=== PATIENT | male | born 1960 | race Caucasian/White ===

== ENCOUNTER → 2018-04-19 | Outpatient (REF) | payer OTHER ==
[2018-04-19 14:19] LABS: ALBUMIN 4.1 GM/DL (3.2-5.2); ALT/SGPT 39 U/L (12-78); BILIRUBIN,TOTAL 0.6 MG/DL (0.2-1.0); BLOOD UREA NITROGEN 19 MG/DL (7-18); CALCIUM LEVEL 8.9 MG/DL (8.5-10.1); CARBON DIOXIDE LEVEL 28 MEQ/L (21-32); CHLORIDE LEVEL 103 MEQ/L (98-107); CHOLESTEROL LEVEL 246 MG/DL (<200); CHOLESTEROL RISK RATIO 4.823 (<5); CREATININE FOR GFR 1.02 MG/DL (0.70-1.30); GLOMERULAR FILTRATION RATE > 60.0 (>56); GLUCOSE, FASTING 104 MG/DL (70-100); HDL CHOLESTEROL 51 MG/DL (>40); LDL CHOLESTEROL 175 MG/DL (<100); NON-HDL-C 195 MG/DL; POTASSIUM SERUM 4.7 MEQ/L (3.5-5.1); SODIUM LEVEL 138 MEQ/L (136-145); TOTAL PROTEIN 7.3 GM/DL (6.4-8.2); TRIGLYCERIDES LEVEL 101 MG/DL (<150)
[2018-04-19 14:43] LABS: HEMOGLOBIN A1c 6.2 %
== END ==
LOC: M SFHCPLAZ 10:15
PROVIDERS: ATTEND Family Medicine
DX: R73.03 Prediabetes (principal); E78.2 Mixed hyperlipidemia; Z86.73 Personal history of transient ischemic attack (TIA), and cerebral infarction without residual deficits

== ENCOUNTER → 2018-07-16 | Outpatient (REF) | payer OTHER ==
[2018-07-16 14:31] LABS: APPEARANCE, URINE CLEAR (CLEAR); BACTERIA, URINE AUTO NEGATIVE (NEGATIVE); BILIRUBIN, URINE AUTO NEGATIVE (NEGATIVE); BLOOD, URINE BLOOD NEGATIVE (NEGATIVE); COLOR, URINE YELLOW (YELLOW); GLUCOSE, URINE (UA) AUTO NEGATIVE (NEGATIVE); KETONE, URINE AUTO NEGATIVE (NEGATIVE); LEUKOCYTE ESTERASE, URINE AUTO NEGATIVE (NEGATIVE); NITRITE, URINE AUTO NEGATIVE (NEGATIVE); PROTEIN, URINE AUTO NEGATIVE (NEGATIVE); RBC, URINE AUTO 1 /HPF (0-3); SPECIFIC GRAVITY URINE AUTO 1.012 (1.002-1.035); SQUAMOUS EPITHELIAL CELL UR AU 0 /HPF (0-6); UROBILINOGEN, URINE AUTO 0.2 mg/dL (0.0-2.0); WBC, URINE AUTO 0 /HPF (0-3)
== END ==
LOC: M SFHCPLAZ 13:28
PROVIDERS: ATTEND Family Medicine
DX: N40.1 Benign prostatic hyperplasia with lower urinary tract symptoms (principal)

== ENCOUNTER → 2020-11-25 | Outpatient (CLI) | payer BC ==
[2020-11-25 15:40] LABS: ALBUMIN 3.8 GM/DL (3.2-5.2); ALT/SGPT 29 U/L (12-78); BILIRUBIN,TOTAL 0.5 MG/DL (0.2-1.0); BLOOD UREA NITROGEN 16 MG/DL (7-18); CALCIUM LEVEL 9.3 MG/DL (8.5-10.1); CARBON DIOXIDE LEVEL 29 MEQ/L (21-32); CHLORIDE LEVEL 106 MEQ/L (98-107); CHOLESTEROL LEVEL 237 MG/DL (<200); CHOLESTEROL RISK RATIO 4.557 (<5); CREATININE FOR GFR 1.03 MG/DL (0.70-1.30); GLOMERULAR FILTRATION RATE > 60.0 (>56); GLUCOSE, FASTING 98 MG/DL (70-100); HDL CHOLESTEROL 52 MG/DL (>40); LDL CHOLESTEROL 165 MG/DL (<100); NON-HDL-C 185 MG/DL; POTASSIUM SERUM 4.4 MEQ/L (3.5-5.1); SODIUM LEVEL 139 MEQ/L (136-145); TOTAL PROTEIN 6.9 GM/DL (6.4-8.2); TRIGLYCERIDES LEVEL 101 MG/DL (<150)
== END ==
LOC: M PLALAB 12:47
PROVIDERS: ATTEND Family Medicine
DX: E78.2 Mixed hyperlipidemia (principal); N40.1 Benign prostatic hyperplasia with lower urinary tract symptoms
CPT/HCPCS: 36415; 80053; 80061; G0103

== ENCOUNTER → 2021-01-04 | Outpatient (CLI) | payer BC | LOC: M PLALAB 15:40 | PROVIDERS: ATTEND Nurse Practitioner Women's Health | DX: R97.20 Elevated prostate specific antigen [PSA] (principal) ==

== ENCOUNTER 2021-03-01 08:45 | Day surgery (SDC) | payer BC ==
[~2021-03-01] VITALS: Ht 182.9 cm; Wt 92.4 kg
[~2021-03-01 08:45] MED LIST: ASPI81TA26 PO; FLOM0.4C39 PO; NS 1,000 ML IV ONE; PAXI30TA11 PO
--- OUTSIDE RECORDS SUMMARY | 2021-03-01 08:52 | CCD ---
Author Author [facility] Organization [facility] Address Unknown Phone Unavailable Care Team Providers Care Point Of Sale Associate Name Role Phone Marilu Maldonado Unavailable PROBLEMS Type Condition ICD9-CM Code [id number] Code Onset Dates Condition S tatus W/U Status Risk SNOMED Code Notes Problem Generalized anxiety disorder F41.1 Active confirme d 59709455 Problem Mixed hyperlipidemia E78.2 Active confirmed 221013109 Problem Benign prostatic hyperplasia with lower urinary tract symptoms N40.1 Active confirmed [id number] ALLERGIES Allergen (clinical drug ingredient) Drug/Non Drug Allergy do cumented on EMR Reaction Allergy Type Onset Date Status Penicillin (For Allergies Use Only) Hives Drug Allerg y Active ENCOUNTERS from 1960 to 2021-02-25 Encounter Location Date Provider Diagnosis [address] [phone] [place] [address] Feb, Marilu Maldonado IMMUNIZATIONS No Information SOCIAL HISTORY Tobacco Use: Social History Observation Description Date Details (start date - stop date) Never Smoker Sex Assigned At : Social History Observation Description Sex Assigned At Unknown Education: Question Answer Notes Level of Education: College Audit Question Answer Notes Total Score: 4 Interpretation: Alcohol Education Language: Question Answer Notes Languages spoken: Danish mozambican, american Roman Catholic: Question Answer Notes Roman Catholic 33 None Domestic Violence: Question Answer Notes Status: Single Sexual Hx: Question Answer Notes Had sex in the last 12 months (vaginal, oral, or anal)? Yes Have you ever had an STD? No with Women only Use protection? No Drug and Alcohol Question Answer Notes Total Score: 0 Interpretation: No problems reported Alcohol Screening: Question Answer Notes Did you have a drink containing alcohol in the past year? Ye s Points 4 Interpretation Positive How often did you have six or more drinks on one occas ion in the past year? Never (0 points) How many drinks did you have on a typica l day when you were drinking in the past year? 1 or 2 (0 points) How often did you have a drink containing alcohol in t he past year? Four or more times a week (4 points) Tobacco Use: Question Answer Notes Are you a: never smoker REASON FOR REFERRAL No Information VITAL SIGNS No information MEDICATIONS Medication SIG (Take, Route, Frequency, Duration) Notes Start Da te End Date Status Paxil 20 MG 1.5 tablet Orally Once a day for 90 day(s) Active Bactrim DS 800-160 MG 1 tablet Orally as directed- 1 tab the night before biopsy and 1 tab the morning of Dec, Active May Have - 5mg bedtime Active Tamsulosin HCl 0.4 MG 1 capsule Orally Once a day Jul, Active Fleet Enema 7-19 GM/118ML as directed Rectal as directed- th e morning of biopsy Dec, Active Aspirin 81 81 MG 1 tablet Orally Once a day Apr, Active PROCEDURES No Information RESULTS No Results REASON FOR VISIT Muscle mass in back MEDICAL (GENERAL) HISTORY Type Description Date Medical History TIA Medical History Generalized anxiety disorder Medical History Hyperlipidemia Medical History Prediabetes Medical History BPH Medical History Benign Essential Tremor Medical History ASCVD risk 9.3% in 11/2020, patient decli navneet statin Surgical History Appendectomy 1990 Surgical History vasectomy Hospitalization History Appendectomy 1990 Hospitalization History TIA 2015 Hospitalization History fell of [facility] a couple month ago Goals Section No Information Health Concerns No Information MEDICAL EQUIPMENT No Information MENTAL STATUS No Information FUNCTIONAL STATUS No Information ASSESSMENTS No Information PLAN OF TREATMENT Medication Medication Name Sig Start Date Stop Date Bactrim DS 800-160 MG 1 tablet Orally as directed- 1 tab the night before biopsy and 1 tab the morning of Dec, Fleet Enema 7-19 GM/118ML as directed Rectal as directed- th e morning of biopsy Dec, Next Appt Details Provider Name:Marilu Clarke Demianbehzad, 2021-08-19 11:45:00 AM, [address] [facility], , [place], [address], Insurance Providers Payer Name Payer Address Payer Phone Insured Name Patient Relati onship to Insured Coverage Start Date Coverage End Date [facility] [address] [place] [id number] LASHAUN PEREZ self
--- OUTSIDE RECORDS SUMMARY | 2021-03-01 08:52 | CCD ---
Author Author [facility] Organization [facility] Address Unknown Phone Unavailable Care Team Providers Care Surgical Instrument Repair Specialist Name Role Phone Yokasta Edna Unavailable PROBLEMS Type Condition ICD9-CM Code [id number] Code Onset Dates Condition S tatus W/U Status Risk SNOMED Code Notes Problem Generalized anxiety disorder F41.1 Active confirme d 19298247 Problem Mixed hyperlipidemia E78.2 Active confirmed 955748310 Problem Benign prostatic hyperplasia with lower urinary tract symptoms N40.1 Active confirmed 306520660 ALLERGIES Allergen (clinical drug ingredient) Drug/Non Drug Allergy do cumented on EMR Reaction Allergy Type Onset Date Status Penicillin (For Allergies Use Only) Hives Drug Allerg y Active ENCOUNTERS from 1961 to 2021-01-27 Encounter Location Date Provider Diagnosis [facility] [address] [phone] [place] [address] Jan, Edna Templeton IMMUNIZATIONS No Information SOCIAL HISTORY Tobacco Use: Social History Observation Description Date Details (start date - stop date) Never Smoker Sex Assigned At : Social History Observation Description Sex Assigned At Unknown Education: Question Answer Notes Level of Education: College Audit Question Answer Notes Total Score: 4 Interpretation: Alcohol Education Language: Question Answer Notes Languages spoken: Malawian turkmen, icelandic Bahai: Question Answer Notes Bahai 33 None Domestic Violence: Question Answer Notes [...] Information RESULTS No Results REASON FOR VISIT biopsy MEDICAL (GENERAL) HISTORY Type Description Date Medical History TIA Medical History Generalized anxiety disorder Medical History Hyperlipidemia Medical History Prediabetes Medical History BPH Medical History Benign Essential Tremor Medical History ASCVD risk 9.3% in 11/2020, patient decli navneet statin Surgical History Appendectomy 1990 Surgical History vasectomy Hospitalization History Appendectomy 1990 Hospitalization History TIA 2015 Hospitalization History fell of [facility] a couple month ago Goals Section No [...] Next Appt Details Provider Name:Marilu Clarke Demianbehzad, 2021-03-01 11:45:00 AM, [address] [facility], , [place], [address], Insurance Providers Payer Name Payer Address Payer Phone Insured Name Patient Relati onship to Insured Coverage Start Date Coverage End Date [facility] [address] [place] [id number] LASHAUN PEREZ self
--- OUTSIDE RECORDS SUMMARY | 2021-03-01 08:52 | CCD | Continuity of Care Document ---
Author Author Ramses MASCORRO Organization Unknown Address [address] [place] [address] Phone [phone] Care Team Providers Care Copy Holder Name Role Phone Marilu Maldonado MD AUTM [phone] Problems Description No Information Available Social History Type Date Description Comments Sex Unknown Allergies and adverse reactions Description No Information Available Medications Description No Information Available Immunizations Description No Information Available Vital Signs Description No Information Available Results Description No Information Available Procedures Date Code Description Status 02/18/2021 37550 EEG Recording Awake & Asleep Com pleted 02/18/2021 67880 EEG Recording Awake & Asleep Com pleted 02/01/2021 11657 Nerve Conduction 9-10 Studies Co mpleted 02/01/2021 50223 Needle Electromyography Complete , Five Or More Muscles Studied Completed 02/01/2021 08248 Needle Electromyography Complete , Five Or More Muscles Studied Completed 01/15/2021 40317 Office/Outpatient New Moderate M DM 45-59 Minutes Completed Medical Devices Description No Information Available Encounters Type Date Location Provider Dx Diagnosis Office Visit 01/15/2021 12:30p Main office - [place] Brittany Irving M.D. R25.8 Other abnormal involuntary movements R41.3 Other amnesia M54.2 Cervicalgia R20.2 Paresthesia of skin G45.9 Transient cerebral ischemic attack, unspecified H53.8 Other visual disturbances R25.3 Fasciculation Assessments Date Code Description Provider 02/18/2021 G25.0 Essential tremor Charissa Cortes 02/18/2021 G25.0 Essential tremor EEG 02/18/2021 R41.3 Other amnesia David Cortes 02/18/2021 R41.3 Other amnesia EEG 02/01/2021 G56.03 Carpal tunnel syndrome, bilatera l upper limbs Mauro Barr M.D. 02/01/2021 M54.12 Radiculopathy, cervical region M echo Barr M.D. 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 01/15/2021 R25.8 Other abnormal involuntary movem ents Brittany Irving M.D. 01/15/2021 R41.3 Other amnesia David Cortes 01/15/2021 M54.2 Cervicalgia David Cortes 01/15/2021 R20.2 Paresthesia of skin Brittany Irving M.D. 01/15/2021 G45.9 Transient cerebral ischemic miya ck, unspecified Brittany Irving M.D. 01/15/2021 H53.8 Other visual disturbances Brittany Irving M.D. 01/15/2021 R25.3 Fasciculation David Cortes Plan of Treatment Future Appointment(s):* 03/19/2021 9:45 am - Brittany Irving M.D. at Main office - [place] Functional Status Description No Information Available Mental Status Description No Information Available Referrals Description No Information Available
--- OUTSIDE RECORDS SUMMARY | 2021-03-01 08:52 | CCD ---
Author Author [facility] Organization [facility] [employer] [facility] Address Unknown Phone Unavailable Care Team Providers Care Wound Nurse Name Role Phone Marilu Maldonado Unavailable PROBLEMS Type Condition ICD9-CM Code [id number] Code Onset Dates Condition S tatus W/U Status Risk SNOMED Code Notes Problem Generalized anxiety disorder F41.1 Active confirme d 35389855 Problem Mixed hyperlipidemia E78.2 Active confirmed 819754672 Problem Benign prostatic hyperplasia with lower urinary tract symptoms N40.1 Active confirmed 108740518 ALLERGIES Allergen (clinical drug ingredient) Drug/Non Drug Allergy do cumented on EMR Reaction Allergy Type Onset Date Status Penicillin (For Allergies Use Only) Hives Drug Allerg y Active ENCOUNTERS from 1960 to 2020-12-10 Encounter Location Date Provider Diagnosis [address] [phone] [place] [address] Nov, Marilu Maldonado IMMUNIZATIONS No Information SOCIAL HISTORY Tobacco Use: Social History Observation Description Date Details (start date - stop date) Never Smoker Sex Assigned At : Social History Observation Description Sex Assigned At Unknown Education: Question Answer Notes Level of Education: College Audit Question Answer Notes Total Score: 4 Interpretation: Alcohol Education Language: Question Answer Notes Languages spoken: Maori argentine, pakistani Hindu: Question Answer Notes Hindu 33 None Domestic Violence: Question Answer Notes [...] Once a day for 90 day(s) Active Aspirin 81 81 MG 1 tablet Orally Once a day Apr, Active Tamsulosin HCl 0.4 MG 1 capsule Orally Once a day Jul, Active May Have - 5mg bedtime Active PROCEDURES No Information RESULTS No Results REASON FOR VISIT Neurology Referral MEDICAL (GENERAL) HISTORY Type Description Date Medical History TIA Medical History Generalized anxiety disorder Medical History Hyperlipidemia Medical History Prediabetes Medical History BPH Medical History Benign Essential Tremor Medical History ASCVD risk 9.3% in 11/2020, patient decli navneet statin Surgical History Appendectomy 1990 Surgical History vastectomy Hospitalization History Appendectomy 1990 Hospitalization History TIA 2016 Goals Section No Information Health Concerns No Information MEDICAL EQUIPMENT No Information MENTAL STATUS No Information FUNCTIONAL STATUS No Information ASSESSMENTS No Information PLAN OF TREATMENT Medication Medication Name Sig Start Date Stop Date Paxil 20 MG 1.5 tablet Orally Once a day for 90 day(s) Tamsulosin HCl 0.4 MG 1 capsule Orally Once a day Jul, Aspirin 81 81 MG 1 tablet Orally Once a day Apr, Next Appt Details Provider Name:Edna Templeton, 2020-12-17 0 03:00:00 PM, [address], , [place], [address], Provider Name:Marilu Maldonado, 2021-03-01 11:45:00 AM, [address] [facility], , [place], [address], Insurance Providers Payer Name Payer Address Payer Phone Insured Name Patient Relati onship to Insured Coverage Start Date Coverage End Date [facility] [phone] [facility] [id number] LASHAUN PEREZ
--- OUTSIDE RECORDS SUMMARY | 2021-03-01 08:52 | CCD | Continuity of Care Document ---
Author Author [facility] Organization Unknown Address [address] [facility], [address] [place] [address] Phone [phone] Care Team Providers Care Utilization Supervisor Name Role Phone Marilu Maldonado M.D. AUTM [phone] Problems Description No Active Problems Social History Type Date Description Comments Sex Unknown ETOH Use 2 A Day Tobacco Use Start: Unknown Non Smoker Allergies, Adverse Reactions, Alerts Active Allergies Criticality Reaction | Severity Comments Date Penicillin Unable to assess criticality 06/26/2018 Medications Active Medications SIG Qnty Indications Ordering Provide r Date Suprep Bowel Prep Kit 17.5-3.13-1.6GM/177ML Solution take per doctor's bowel prep instructions. 354ml Z12.1 1 Darnell Peck MD 01/05/[address] take 4 tabs by mouth prior to procedure per instructions. 4tabs Z12.11 Darnell Peck MD 01/05/2021 Paxil 20mg Tablets 1 1/2 by mouth every day Unknown Aspirin 81mg Tablets DR 1 by mouth every day Unknown Tamsulosin HCL 0.4mg Capsules 1 by mouth every day Unknown Immunizations Description No Information Available Vital Signs Date Vital Result Comment 01/05/2021 1:15pm BP Systolic 130 mmHg BP Diastolic 84 mmHg Height 72 inches 6'0" Weight 209.00 lb BMI (Body Mass Index) 28.3 kg/m2 [place] Body Weight 178 lb Weight 94.802 kg BSA (Body Surface Area) 2.17 m2 06/26/2018 11:52am BP Systolic 118 mmHg BP Diastolic 82 mmHg Height 72 inches 6'0" Weight 206.00 lb BMI (Body Mass Index) 27.9 kg/m2 [place] Body Weight 178 lb Weight 93.442 kg BSA (Body Surface Area) 2.16 m2 Results Description No Information Available Procedures Description No Information Available Medical Devices Description No Information Available Encounters Description No Information Available Assessments Date Code Description Provider 01/05/2021 Z12.11 Encounter for screening for jl gnant neoplasm of colon DAVID Goode Plan of Treatment 01/05/2021 - DAVID Goode* Z12.11 Encounter for screening for malignant neoplasm of colon * * New Medication:* Suprep Bowel Prep Kit 17.5-3.13-1.6 GM/177ML * Dulcolax 5 mg * New Orders:* Colonoscopy, Ordered: 01/05/21 * Comments:* Will arrange for colonoscopy. Reviewed risks and benefits of the procedure, as well as other options, with the patient. Bowel prep procedure was discussed with patient, as well as risks and side effects associated with the bowel prep. Patient verbalized understanding of all of the above and is in agreement to proceed. Patient will seek medical attention for any acute changes. Will monitor. * Follow up:* As scheduled, sooner if needed. Functional Status Description No Information Available Mental Status Description No Information Available Referrals Refer to Reason for Referral Status Appt Date Erick Joseph M.D. COLO SCREENING Scheduled 12/17 [facility] [address] [facility] [address], [address] [place] [address] [phone]
--- OUTSIDE RECORDS SUMMARY | 2021-03-01 08:52 | CCD | Continuity of Care Document ---
Author Author Ramses JOYCE M.D. Organization Unknown Address [address] [place] [address] Phone [phone] Care Team Providers Care Urogynecology Physician Name Role Phone Marilu Maldonado MD [facility] [phone] Problems Description No Information Available Social History Type Date Description Comments Sex Unknown Allergies, Adverse Reactions, Alerts Description No Information Available Medications Description No Information Available Immunizations Description No Information Available Vital Signs Description No Information Available Results Description No Information Available Procedures Description No Information Available Medical Devices Description No Information Available Encounters Description No Information Available Assessments Description No Information Available Plan of Treatment No Information Available Functional Status Description No Information Available Mental Status Description No Information Available Referrals Description No Information Available
--- OUTSIDE RECORDS SUMMARY | 2021-03-01 08:52 | CCD ---
Author Author [facility] Organization [facility] Address Unknown Phone Unavailable Care Team Providers Care Microsoft Architect Name Role Phone KIKO JOYCE MD Unavailable Unavailable KIKO JOYCE MD Unavailable Unavailable KIKO JOYCE MD Unavailable Unavailable KIKO JOYCE MD Unavailable Unavailable KIKO JOYCE MD Unavailable Unavailable KIKO JOYCE MD Unavailable Unavailable KIKO JOYCE MD Unavailable Unavailable KIKO JOYCE MD Unavailable Unavailable KIKO JOYCE MD Unavailable Unavailable KIKO JOYCE MD Unavailable Unavailable KIKO JOYCE MD Unavailable Unavailable KIKO OJYCE MD Unavailable Unavailable KIKO JOYCE MD Unavailable Unavailable KIKO JOYCE MD Unavailable Unavailable KIKO JOYCE MD Unavailable Unavailable KIKO JOYCE MD Unavailable Unavailable KIKO JOYCE MD Unavailable Unavailable KIKO JOYCE MD Unavailable Unavailable KIKO JOYCE MD Unavailable Unavailable KIKO JOYCE MD Unavailable Unavailable KIKO JOYCE MD Unavailable Unavailable KIKO JOYCE MD Unavailable Unavailable KIKO JOYCE MD Unavailable Unavailable KIKO JOYCE MD Unavailable Unavailable KIKO JOYCE MD Unavailable Unavailable KIKO JOYCE MD Unavailable Unavailable KIKO JOYCE MD Unavailable Unavailable KIKO JOYCE MD Unavailable Unavailable KIKO JOYCE MD Unavailable Unavailable KIKO JOYCE MD Unavailable Unavailable KIKO JOYCE MD Unavailable Unavailable KIKO JOYCE MD Unavailable Unavailable KIKO JOYCE MD Unavailable Unavailable KIKO JOYCE MD Unavailable Unavailable KIKO JOYCE MD Unavailable Unavailable KIKO JOYCE MD Unavailable Unavailable KIKO JOYCE MD Unavailable Unavailable KIKO JOYCE MD Unavailable Unavailable MARIA DEL CARMEN, KIKO VARGAS Unavailable Unavailable MARIA DEL CARMEN, KIKO VARGAS Unavailable Unavailable MARIA DEL CARMEN, KIKO VARGAS Unavailable Unavailable MARIA DEL CARMEN, KIKO VARGAS Unavailable Unavailable MARIA DEL CARMEN, KIKO VARGAS Unavailable Unavailable Re-disclosure Warning The records that you are about to access may contain information from federally-assisted alcohol or drug abuse programs. If such information is present, then the following federally mandated warning applies: This information has been disclosed to you from records protected by federal confidentiality rules (42 CFR part 2). The federal rules prohibit you from making any further disclosure of this information unless further disclosure is expressly permitted by the written consent of the person to whom it pertains or as otherwise permitted by 42 CFR part 2. A general authorization for the release of medical or other information is NOT sufficient for this purpose. The Federal rules restrict any use of the information to criminally investigate or prosecute any alcohol or drug abuse patient.The records that you are about to access may contain highly sensitive health information, the redisclosure of which is protected by Article 27-F of the [facility] Public Health law. If you continue you may have access to information: Regarding HIV / AIDS; Provided by facilities licensed or operated by the [facility] Office of Mental Health; or Provided by the [facility] Office for People With Developmental Disabilities. If such information is present, then the following [facility] mandated warning applies: This information has been disclosed to you from confidential records which are protected by state law. State law prohibits you from making any further disclosure of this information without the specific written consent of the person to whom it pertains, or as otherwise permitted by law. Any unauthorized further disclosure in violation of state law may result in a fine or fpc sentence or both. A general authorization for the release of medical or other information is NOT sufficient authorization for further disc losure. Family History Family Member Name Family Member Gender Family Member Status Date o f Status Description Data Source(s) Unknown Unknown Problem MEDENT ([facility]) Encounters Encounter Providers Location Date Indications Data Source(s ) Outpatient 02/26/2021 08:28:57 AM EST - 021 09:04:14 AM EST DocuTap ([facility]) Outpatient 02/18/2021 09:24:23 AM EDT - 021 10:27:00 AM EDT [facility] ([facility]) Outpatient 02/01/2021 09:44:25 AM EDT - 021 09:57:33 AM EDT [facility] ([facility]) Unknown [address] [facility] [address] 01/27/2021 12:00:00 AM EDT eCW1 ([facility]) Outpatient Attender: KIKO JOYCE MD Main office - [place] 01/15/2021 12:30:00 PM EDT MEDENT ([facility]) Unknown [address] [facility] [address] 01/05/2021 12:00:00 AM EDT eCW1 ([facility]) Unknown [address] [facility] [address] 01/05/2021 12:00:00 AM EDT eCW1 ([facility]) Outpatient [address] [facility] [address] 01/04/2021 12:00:00 AM EDT eCW1 ([facility]) Unknown [address] [facility] [address] 12/09/2020 12:00:00 AM EDT eCW1 ([facility]) Unknown [address] [facility] [address] 11/26/2020 12:00:00 AM EDT eCW1 ([facility]) Outpatient [address] [facility] [address] 11/24/2020 12:00:00 AM EDT eCW1 ([facility]) [place] [address] [facility] [place] [address] 11/24/2020 12:00:00 AM EDT eCW1 ([facility]) Unknown [address] [facility] [address] 07/29/2020 12:00:00 AM EDT eCW1 ([facility]) Immunizations Vaccine Date Status Description Data Source(s) COVID-19 VACCINE Moderna 08/26/2020 12:00:00 AM EDT completed [facility] Vaccine Series Complete: YESThis Data wa s Submitted to [facility]. COVID-19 VACCINE Moderna 07/28/2020 12:00:00 AM EDT completed [facility] Vaccine Series Complete: NOThis Data was Submitted to [facility]. Medications Medication Brand Name Start Date Product Form Dose Route Admi nistrative Instructions Pharmacy Instructions Status Indications Reaction Description Data Source(s) SUPREP BOWEL PREP KIT 17.5-3.13-1.6 gram SODIUM, POTASSIUM,M AG SULFATES 01/06/2021 12:00:00 AM EDT recon soln 354 TAKE PER DOCTOR'S BOWEL PREP INSTRUCTIONS TAKE PER DOCTOR'S BOWEL PREP INSTRUCTIONS SOLD: 01/15/2021 [facility] Sulfamethoxazole 800 MG / Trimethoprim 1 60 MG Oral Tablet [Bactrim] Bactrim DS 800-160 MG Bactrim DS 800-160 MG 01/05/2021 12:00:00 AM EDT 1.0 {table t} active Bactrim DS 800-160 MG eCW1 ( [facility]) Sodium Phosphate, Dibasic 59.3 MG/ML / S odium Phosphate, Monobasic 161 MG/ML Enema Fleet Enema 7-19 GM/118ML Fleet Enema 7-19 GM/118ML 01/05/2021 12:00:00 AM EDT active Fleet Enema 7-19 GM/118ML eCW1 ([facility]) Sulfamethoxazole 800 MG / Trimethoprim 1 60 MG Oral Tablet [Bactrim] Bactrim DS 800-160 MG Bactrim DS 800-160 MG 01/05/2021 12:00:00 AM EDT 1.0 {table t} active Bactrim DS 800-160 MG eCW1 ( [facility]) 800-160 mg 01/05/2021 12:00:00 AM EDT tablet 2 TAKE 1 TABLET BY MOUTH THE NIGHT BEFORE BIOPSY AND 1 TABLET THE MORNING OF TAKE 1 TABLET BY MOUTH THE NIGHT BEFORE BIOPSY AND 1 TABLET THE MORNING OF SOLD: 01/05/2021 [facility] Bisacodyl 5 MG Delayed Release Oral Tablet [Dulcolax] Dulcol ax 01/05/2021 12:00:00 AM EDT ORAL active M EDENT ([facility], ) Suprep Bowel Prep Kit Suprep Bowel Prep Kit 01/05/2021 12:00:00 AM EDT active MEDENT ([facility], ) Sulfamethoxazole 800 MG / Trimethoprim 1 60 MG Oral Tablet [Bactrim] Bactrim DS 800-160 MG Bactrim DS 800-160 MG 01/05/2021 12:00:00 AM EDT 1.0 {table t} active Bactrim DS 800-160 MG eCW1 ( [facility]) Sodium Phosphate, Dibasic 59.3 MG/ML / S odium Phosphate, Monobasic 161 MG/ML Enema Fleet Enema 7-19 GM/118ML Fleet Enema 7-19 GM/118ML 01/05/2021 12:00:00 AM EDT active Fleet Enema 7-19 GM/118ML eCW1 ([facility]) Sulfamethoxazole 800 MG / Trimethoprim 1 60 MG Oral Tablet [Bactrim] Bactrim DS 800-160 MG Bactrim DS 800-160 MG 01/05/2021 12:00:00 AM EDT 1.0 {table t} active Bactrim DS 800-160 MG eCW1 ( [facility]) Sodium Phosphate, Dibasic 59.3 MG/ML / S odium Phosphate, Monobasic 161 MG/ML Enema Fleet Enema 7-19 GM/118ML Fleet Enema 7-19 GM/118ML 01/05/2021 12:00:00 AM EDT active Fleet Enema 7-19 GM/118ML eCW1 ([facility]) Sodium Phosphate, Dibasic 59.3 MG/ML / S odium Phosphate, Monobasic 161 MG/ML Enema Fleet Enema 7-19 GM/118ML Fleet Enema 7-19 GM/118ML 01/05/2021 12:00:00 AM EDT active Fleet Enema 7-19 GM/118ML eCW1 ([facility]) 20 mg 11/26/2020 12:00:00 AM EDT tablet 135 TAKE ONE AND ONE-HALF TABLETS BY MOUTH ONCE DAILY TAKE ONE AND ONE-HALF TABLETS BY MOUTH ONCE DAILY SOLD : 11/26/2020 [facility] 20 mg 07/30/2020 12:00:00 AM EDT tablet 135 TAKE 1 & 1/2 TABLET BY MOUTH DAILY TAKE 1 & 1/2 TABLET BY MOUTH DAILY SOLD: 07/30/2020 [facility] Paroxetine Hydrochloride 40 MG Oral Tablet PAROXETINE HCL 05/06/2020 12:00:00 AM EST tablet 90 TAKE ONE TABLET BY MOUTH MABLE RY DAY IN THE MORNING TAKE ONE TABLET BY MOUTH EVERY DAY IN THE MORNING SOLD: 05/06/2020 [facility] Paroxetine Hydrochloride 40 MG Oral Tablet PAROXETINE HCL 06/25/2019 12:00:00 AM EDT tablet 30 TAKE 1 TABLET BY MOUTH ONCE IN THE MORNING TAKE 1 TABLET BY MOUTH ONCE IN THE MORNING SOLD: 03/27/2020 [facility] Paroxetine Hydrochloride 40 MG Oral Tablet PAROXETINE HCL 06/25/2019 12:00:00 AM EDT tablet 30 TAKE 1 TABLET BY MOUTH ONCE IN THE MORNING TAKE 1 TABLET BY MOUTH ONCE IN THE MORNING SOLD: 01/07/2020 [facility] Insurance Providers Payer name Policy type / Coverage type Policy ID Covered constitution party ID Covered constitution party's relationship to ortega Policy Ortega Plan Information [facility] Blue Cross and Blue Shield [facility] Blue Cross/ Blue Shield [id number] Self [id number] [place] 200/700 [id number] SP [id number] SELF PAY ONLY [id number] SP [id number] [employer] [place] 200/700 [id number] SP [id number] [facility] [id number] ANSI-Commercial [id number] ANSI-Commercial [id number] ANSI-Commercial [id number] ANSI-Commercial [id number] [facility] [id number] [facility] Organization ([facility] [id number] [facility] [id number] ANSI-Commercial [id number] ANSI-Commercial [id number] Problems, Conditions, and Diagnoses No Information Surgeries/Procedures Procedure Description Date Indications Data Source(s) ELECTROENCEPHALOGRAM W/REC AWAKE&ASLEEP 02/18/2021 12: 00:00 AM YURIDIA TRAN ([facility], ) ELECTROENCEPHALOGRAM W/REC AWAKE&ASLEEP 02/18/2021 12: 00:00 AM YURIDIA TRAN ([facility], ) Needle electromyography, each extremity, with related paraspinal areas, when performed, done with nerve conduction, amplitude and latency/velocity study; complete, five or more muscles studied, innervated by three or more nerves or four or more spinal levels (list separately in addition to the code for primary procedure). 02/01/2021 12:00:00 AM YURIDIA Acevedo ([facility], ) Needle electromyography, each extremity, with related paraspinal areas, when performed, done with nerve conduction, amplitude and latency/velocity study; complete, five or more muscles studied, innervated by three or more nerves or four or more spinal levels (list separately in addition to the code for primary procedure). 02/01/2021 12:00:00 AM YURIDIA Acevedo ([facility], ) Nerve Conduction 9-10 Studies 02/01/2021 12:00:00 AM Vince TRAN ([facility], ) OFFICE OUTPATIENT NEW 45 MINUTES 01/15/2021 12:00:00 A M YURIDIA TRAN ([facility]) Results ID Date Data Source [id number] 02/18/2021 09:30:00 AM EDT [facility] Name Value Range Interpretation Code Description Data Karo rce(s) Supporting Document(s) SARS-CoV-2 RNA Resp Ql ESTEFANY+probe NOT DETECTED [facility] This lab was ordered by SRIDEVI milton and reported by [facility]. ID Date Data Source [id number] 02/01/2021 10:00:00 AM EDT [facility] Name Value Range Interpretation Code Description Data Karo rce(s) Supporting Document(s) SARS-CoV-2 RNA Resp Ql ESTEFANY+probe NOT DETECTED [facility] This lab was ordered by SRIDEVI milton and reported by [facility]. ID Date Data Source [id number] 01/15/2021 12:00:00 AM EDT [facility] Name Value Range Interpretation Code Description Data Karo rce(s) Supporting Document(s) NAAT NEGATIVE [facility] This lab was ordered by [facility] and reported by [facility]. ID Date Data Source [id number] 01/04/2021 04:15:00 PM EDT [facility] Name Value Range Interpretation Code Description Data Karo rce(s) Supporting Document(s) SARS-CoV-2 RNA Resp Ql ESTEFANY+probe NOT DETECTED [facility] This lab was ordered by SRIDEVI milton and reported by [facility]. ID Date Data Source [id number] 11/24/2020 12:00:00 AM EDT [facility] Name Value Range Interpretation Code Description Data Karo rce(s) Supporting Document(s) SARS coronavirus 2 RNA Not Detected [facility] This lab was ordered by [facility] and rep orted by [facility]. ID Date Data Source [id number] 08/26/2020 12:00:00 AM EDT [facility] Name Value Range Interpretation Code Description Data Karo rce(s) Supporting Document(s) SARS coronavirus 2 RNA Not Detected [facility] This lab was ordered by [facility] and rep orted by [facility]. ID Date Data Source [id number] 07/28/2020 12:00:00 AM EDT [facility] Name Value Range Interpretation Code Description Data Karo rce(s) Supporting Document(s) SARS coronavirus 2 RNA Not Detected [facility] This lab was ordered by [facility] and rep orted by [facility]. Procedure Social History Code Duration Value Status Description Data Source(s ) Smoking 01/04/2021 12:00:00 AM EDT Never Smoker completed Never S moker eCW1 ([facility]) Smoking 01/04/2021 12:00:00 AM EDT Never Smoker completed Never S moker eCW1 ([facility]) Smoking 01/04/2021 12:00:00 AM EDT Never Smoker completed Never S moker eCW1 ([facility]) Smoking 01/04/2021 12:00:00 AM EDT Never Smoker completed Never S moker eCW1 ([facility]) Smoking 11/26/2020 12:00:00 AM EDT Never Smoker completed Never S moker eCW1 ([facility]) Smoking 11/26/2020 12:00:00 AM EDT Never Smoker completed Never S moker eCW1 ([facility]) Smoking 11/24/2020 12:00:00 AM EDT Never Smoker completed Never S moker eCW1 ([facility]) Smoking 11/24/2020 12:00:00 AM EDT Never Smoker completed Never S moker eCW1 ([facility]) Vital Signs ID Date Data Source UNK Name Value Range Interpretation Code Description Data Source(s) Systolic blood pressure 130 mm[Hg] 130 mm[Hg] M [facility] ([facility]) Diastolic blood pressure 84 mm[Hg] 84 mm[Hg] [facility] ([facility]) Body height 72 [in_i] 72 [in_i] [facility] ([facility]) 6'0" Body weight 209.00 [lb_av] 209.00 [lb_av] KINDRA[facility] ([facility]) Body mass index (BMI) [Ratio] 28.3 kg/m2 28.3 k g/m2 [facility] ([facility]) Mcneil body weight 178 [lb_av] 178 [lb_av] MEDEN T ([facility]) Body weight 94.802 kg 94.802 kg [facility] ([facility], ) Body surface area Derived from formula 2.17 m2 2.17 m2 [facility] Body weight 210 [lb_av] 210 [lb_av] eCW1 ([facility]) Body weight 95.26 kg 95.26 kg eCW1 ([facility]) Body height 70 [in_i] 70 [in_i] eCW1 ([facility]) Body mass index (BMI) [Ratio] 30.13 kg/m2 30.13 kg/m2 eCW1 ([facility]) Heart rate 65 /min 65 /min eCW1 ([facility]) Respiratory rate 18 /min 18 /min eCW1 ([facility]) Body temperature 97.3 [degF] 97.3 [degF] eCW1 ( [facility]) Systolic blood pressure 132 mm[Hg] 132 mm[Hg] e CW1 ([facility]) Diastolic blood pressure 82 mm[Hg] 82 mm[Hg] eCW1 ([facility]) Body weight 209 [lb_av] 209 [lb_av] eCW1 ([facility]) Body height 70 [in_i] 70 [in_i] eCW1 ([facility]) Body mass index (BMI) [Ratio] 29.99 kg/m2 29.99 kg/m2 eCW1 ([facility]) Heart rate 66 /min 66 /min eCW1 ([facility]) Respiratory rate 18 /min 18 /min eCW1 ([facility]) Body temperature 98.8 [degF] 98.8 [degF] eCW1 ( [facility]) Systolic blood pressure 130 mm[Hg] 130 mm[Hg] e CW1 ([facility]) Diastolic blood pressure 68 mm[Hg] 68 mm[Hg] eCW1 ([facility]) Patient Treatment Plan of Care Planned Activity Planned Date Details Description Data Source (s) Sodium Phosphate, Dibasic 59.3 MG/ML / S odium Phosphate, Monobasic 161 MG/ML Enema 01/05/2021 12:00:00 AM EDT eCW1 ([facility]) Sulfamethoxazole 800 MG / Trimethoprim 160 MG Oral Tab let [Bactrim] 01/05/2021 12:00:00 AM EDT eCW1 ([facility]) Sodium Phosphate, Dibasic 59.3 MG/ML / S odium Phosphate, Monobasic 161 MG/ML Enema 01/05/2021 12:00:00 AM EDT eCW1 ([facility]) Sulfamethoxazole 800 MG / Trimethoprim 160 MG Oral Tab let [Bactrim] 01/05/2021 12:00:00 AM EDT eCW1 ([facility]) Sodium Phosphate, Dibasic 59.3 MG/ML / S odium Phosphate, Monobasic 161 MG/ML Enema 01/05/2021 12:00:00 AM EDT eCW1 ([facility]) Sulfamethoxazole 800 MG / Trimethoprim 160 MG Oral Tab let [Bactrim] 01/05/2021 12:00:00 AM EDT eCW1 ([facility]) Sodium Phosphate, Dibasic 59.3 MG/ML / S odium Phosphate, Monobasic 161 MG/ML Enema 01/05/2021 12:00:00 AM EDT eCW1 ([facility]) Sulfamethoxazole 800 MG / Trimethoprim 160 MG Oral Tab let [Bactrim] 01/05/2021 12:00:00 AM EDT eCW1 ([facility])
--- OUTSIDE RECORDS SUMMARY | 2021-03-01 08:52 | CCD | Continuity of Care Document ---
Author Author Ramses [facility] Organization Unknown Address [address] [place] [address] Phone [phone] Care Team Providers Care Physical Medicine Specialist Name Role Phone Marilu Maldonado MD AUTM [phone] Problems Description No Information Available Social History Type Date Description Comments Sex Unknown Allergies and adverse reactions Description No Information Available Medications Description No Information Available Immunizations Description No Information Available Vital Signs Description No Information Available Results Description No Information Available Procedures Date Code Description Status 02/01/2021 05008 Nerve Conduction 9-10 Studies Co mpleted 02/01/2021 92049 Needle Electromyography Complete , Five Or More Muscles Studied Completed 02/01/2021 33510 Needle Electromyography Complete , Five Or More Muscles Studied Completed 01/15/2021 22321 Office/Outpatient New Moderate M DM 45-59 Minutes Completed Medical Devices Description No Information Available Encounters Type Date Location Provider Dx Diagnosis Office Visit 01/15/2021 12:30p Main office - [place] Brittany Irving M.D. R25.8 Other abnormal involuntary movements R41.3 Other amnesia M54.2 Cervicalgia R20.2 Paresthesia of skin G45.9 Transient cerebral ischemic attack, unspecified H53.8 Other visual disturbances R25.3 Fasciculation Assessments Date Code Description Provider 02/01/2021 G56.03 Carpal tunnel syndrome, bilatera l [...] Brittany Irving M.D. at Main office - [place] Functional Status Description No Information Available Mental Status Description No Information Available Referrals Description No Information Available
--- OUTSIDE RECORDS SUMMARY | 2021-03-01 08:52 | CCD ---
Author Author [facility] Organization [facility] Address Unknown Phone Unavailable Care Team Providers Care Drag Sawyer Name Role Phone Edna Templeton Unavailable PROBLEMS Type Condition ICD9-CM Code TQD24-DM Code Onset Dates Condition S tatus W/U Status Risk SNOMED Code Notes Problem Generalized anxiety disorder F41.1 Active confirme d 23681578 Problem Mixed hyperlipidemia E78.2 Active confirmed 737104946 Problem Benign prostatic hyperplasia with lower urinary tract symptoms N40.1 Active confirmed 499478667 ALLERGIES Allergen (clinical drug ingredient) Drug/Non Drug Allergy do cumented on EMR Reaction Allergy Type Onset Date Status Penicillin (For Allergies Use Only) Hives Drug Allerg y Active ENCOUNTERS from 1961 to 2021-01-05 Encounter Location Date Provider Diagnosis [facility] [address] [facility] [phone] [place] [address] Dec, Edna Recore Elevated PSA measurement R97.20 and Vazquez gn prostatic hyperplasia with lower urinary tract symptoms N40.1 IMMUNIZATIONS No Information SOCIAL HISTORY Tobacco Use: Social History Observation Description Date Details (start date - stop date) Never Smoker Sex Assigned At : Social History Observation Description Sex Assigned At Unknown Education: Question Answer Notes Level of Education: College Audit Question Answer Notes Total Score: 4 Interpretation: Alcohol Education Language: Question Answer Notes Languages spoken: Paraguayan marshallese, kinyarwanda Latter Day: Question Answer Notes Latter Day 33 None Domestic Violence: Question Answer Notes [...] REASON FOR REFERRAL No Information VITAL SIGNS Weight 210 lbs Dec, Weight-kg 95.26 kg Dec, Height 70 in Dec, BMI 30.13 kg/m2 Dec, Heart Rate 65 /min Dec, Respiratory Rate 18 /min Dec, Temperature 97.3 degrees Fahrenheit Dec, Oximetry 96% Dec, Blood pressure systolic 132 mm Hg Dec, Blood pressure diastolic 82 mm Hg Dec, MEDICATIONS Medication SIG (Take, Route, Frequency, Duration) [...] Information RESULTS No Results REASON FOR VISIT elevated psa MEDICAL (GENERAL) HISTORY Type Description Date Medical History TIA Medical History Generalized anxiety disorder Medical History Hyperlipidemia Medical History Prediabetes Medical History BPH Medical History Benign Essential Tremor Medical History ASCVD risk 9.3% in 11/2020, patient decli navneet statin Surgical History Appendectomy 1990 Surgical History vasectomy Hospitalization History Appendectomy 1990 Hospitalization History TIA 2015 Hospitalization History fell of deck a couple month ago Goals Section No Information Health Concerns No Information MEDICAL EQUIPMENT No Information MENTAL STATUS No Information FUNCTIONAL STATUS No Information ASSESSMENTS Encounter Date Diagnosis Assessment Notes Treatment Notes Treatm ent Clinical Notes Dec, Elevated PSA measurement (ICD-10 - R97.20) Dec, Benign prostatic hyperplasia with lower urinary tract symptoms (ICD-10 - N40.1) PLAN OF TREATMENT Medication Medication Name Sig Start Date Stop Date Bactrim DS 800-160 MG 1 tablet Orally as directed- 1 tab the night before biopsy and 1 tab the morning of Dec, Fleet Enema 7-19 GM/118ML as directed Rectal as directed- th e morning of biopsy Dec, Future Test Test Name Order Date PSA MONITOR (HX PROSTATE CA/ABNORMAL PSA) 20210104 Next Appt Details Provider Name:Marilu Clarke Demianbehzad, 2021-03-01 11:45:00 AM, [address] [facility], , [place], [address], Insurance Providers Payer Name Payer Address Payer Phone Insured Name Patient Relati onship to Insured Coverage Start Date Coverage End Date [place] [id number] [facility] [id number] LASHAUN PEREZ self
--- OUTSIDE RECORDS SUMMARY | 2021-03-01 08:52 | CCD | Continuity of Care Document ---
Author Author Ramses IRVING M.D. Organization Unknown Address [address] [place] [address] Phone [phone] Care Team Providers Care Geothermal Field Technician Name Role Phone Marilu Maldonado MD AUT [phone] Problems Description No Information Available Social History Type Date Description Comments Sex Unknown Allergies and adverse reactions Description No Information Available Medications Description No Information Available Immunizations Description No Information Available Vital Signs Description No Information Available Results Description No Information Available Procedures Date Code Description Status 01/15/2021 94712 Office/Outpatient New Moderate M DM 45-59 Minutes Completed Medical Devices Description No Information Available Encounters Type Date Location Provider Dx Diagnosis Office Visit 01/15/2021 12:30p Main office - [place] Brittany Irving M.D. R25.8 Other abnormal involuntary movements R41.3 Other amnesia M54.2 Cervicalgia R20.2 Paresthesia of skin G45.9 Transient cerebral ischemic attack, unspecified H53.8 Other visual disturbances R25.3 Fasciculation Assessments Date Code Description Provider 01/15/2021 R25.8 Other abnormal involuntary movem ents [...] 9:45 am - Brittany Irving M.D. at [facility] * 02/01/2021 10:20 am - Mauro Barr M.D. at [facility] * 02/18/2021 8:15 am - EEG at [facility] Functional Status Description No Information Available Mental Status Description No Information Available Referrals Description No Information Available
--- OUTSIDE RECORDS SUMMARY | 2021-03-01 08:52 | CCD | Continuity of Care Document ---
Author Author Ramses BARR M.D. Organization Unknown Address [address] [place] [address] Phone [phone] Care Team Providers Care Editor In Chief Name Role Phone Marilu Maldonado MD AUT [phone] Problems Description No Information Available Social History Type Date Description Comments Sex Unknown Allergies and adverse reactions Description No Information Available Medications Description No Information Available Immunizations Description No Information Available Vital Signs Description No Information Available Results Description No Information Available Procedures Date Code Description Status 02/01/2021 13802 Nerve Conduction 9-10 Studies Co mpleted 02/01/2021 17059 Needle Electromyography Complete , Five Or More Muscles Studied Completed 02/01/2021 13240 Needle Electromyography Complete , Five Or More Muscles Studied Completed 01/15/2021 32600 Office/Outpatient New Moderate M DM 45-59 Minutes Completed Medical Devices Description No Information Available Encounters Type Date Location Provider Dx Diagnosis Office Visit 01/15/2021 12:30p Main office - [place] Brittany Irving M.D. R25.8 Other abnormal involuntary [...] 9:45 am - Brittany Irving M.D. at [facility] * 02/18/2021 8:15 am - EEG at [facility] Functional Status Description No Information Available Mental Status Description No Information Available Referrals Description No Information Available
--- OUTSIDE RECORDS SUMMARY | 2021-03-01 08:52 | CCD | Continuity of Care Document ---
Author Author Ramses LARA [facility] Organization Unknown Address [address], [address] [place] [address] Phone [phone] Care Team Providers Care Sewage Screen Operator Name Role Phone Marilu Maldonado M.D. AUTM [phone] Problems Description No Active Problems Social History [...] bowel prep instructions. 354ml Z12.1 1 Darnell Pcek MD 01/05/[address] take [...] lb BMI (Body Mass Index) 28.3 kg/m2 [place] Body Weight 178 lb Weight 94.802 kg BSA (Body Surface Area) 2.17 m2 06/26/2018 11:52am BP Systolic 118 mmHg BP Diastolic 82 mmHg Height 72 inches 6'0" Weight 206.00 lb BMI (Body Mass Index) 27.9 kg/m2 [place] Body Weight 178 lb Weight 93.442 kg [...] Erick Joseph M.D. COLO SCREENING Scheduled 12/17 [facility] [address], [address] [place] [address] [phone]
--- OUTSIDE RECORDS SUMMARY | 2021-03-01 08:52 | CCD ---
Author Author [employer] Organization [employer] [facility] Address Unknown Phone Unavailable Care Team Providers Care Bread Baker Name Role Phone [employer] Unavailable PROBLEMS Type Condition ICD9-CM Code [id number] Code Onset Dates Condition S tatus W/U Status Risk SNOMED Code Notes Problem Generalized anxiety disorder F41.1 Active confirme d 64923364 Problem Mixed hyperlipidemia E78.2 Active confirmed 419584625 Problem Benign prostatic hyperplasia with lower urinary tract symptoms N40.1 Active confirmed [id number] ALLERGIES Allergen (clinical drug ingredient) Drug/Non Drug Allergy do cumented on EMR Reaction Allergy Type Onset Date Status Penicillin (For Allergies Use Only) Hives Drug Allerg y Active ENCOUNTERS from 1960 to 2021-01-18 Encounter Location Date Provider Diagnosis [facility] [address] [phone] [place] [address] Dec, Edna Templeton Elevated PSA R97.20 IMMUNIZATIONS No Information SOCIAL HISTORY Tobacco Use: Social History Observation Description Date Details (start date - stop date) Never Smoker Sex Assigned At : Social History Observation Description Sex Assigned At Unknown Education: Question Answer Notes Level of Education: College Audit Question Answer Notes Total Score: 4 Interpretation: Alcohol Education Language: Question Answer Notes Languages spoken: [place]inean tristanian, nepali Quaker: Question Answer Notes Quaker 33 None Domestic Violence: Question Answer Notes [...] Information RESULTS No Results REASON FOR VISIT PSA MEDICAL (GENERAL) HISTORY Type Description Date Medical History TIA Medical History Generalized anxiety disorder Medical History Hyperlipidemia Medical History Prediabetes Medical History BPH Medical History Benign Essential Tremor Medical History ASCVD risk 9.3% in 11/2020, patient decli navneet statin Surgical History Appendectomy 1990 Surgical History vasectomy Hospitalization History Appendectomy 1990 Hospitalization History TIA 2015 Hospitalization History fell of [facility] a couple month ago Goals Section No Information Health Concerns No Information MEDICAL EQUIPMENT No Information MENTAL STATUS No Information FUNCTIONAL STATUS No Information ASSESSMENTS Encounter Date Diagnosis Assessment Notes Treatment Notes Treatm ent Clinical Notes Dec, Elevated PSA (ICD-10 - R97.20) Dec, Other Prostate biopsy material was printed,Biopsy: prostate home care material was printed PLAN OF TREATMENT Medication Medication Name Sig Start Date Stop Date Bactrim DS 800-160 MG 1 tablet Orally as directed- 1 tab the night before biopsy and 1 tab the morning of Dec, Fleet Enema 7-19 GM/118ML as directed Rectal as directed- th e morning of biopsy Dec, Treatment Notes Test Name Order Date PLZ PROSTATE BIOPSY 2021-01-05 Next Appt Details Provider Name:Marilu Maldonado, 2021-03-01 11:45:00 AM, [address] [facility], , [place], [address], Insurance Providers Payer Name Payer Address Payer Phone Insured Name Patient Relati onship to Insured Coverage Start Date Coverage End Date [facility] [phone] [place] [phone] LASHAUN PEREZ self
--- OUTSIDE RECORDS SUMMARY | 2021-03-01 08:52 | CCD ---
Author Author [employer] [facility] Organization [employer] [facility] Address Unknown Phone Unavailable Care Team Providers Care Back Shoe Operator Name Role Phone Marilu Maldonado Unavailable PROBLEMS Type Condition ICD9-CM Code AMS38-DT Code Onset Dates Condition S tatus W/U Status Risk SNOMED Code Notes Problem Generalized anxiety disorder F41.1 Active confirme d 91313783 Problem Mixed hyperlipidemia E78.2 Active confirmed 442292308 Problem Benign prostatic hyperplasia with lower urinary tract symptoms N40.1 Active confirmed 662715972 ALLERGIES Allergen (clinical drug ingredient) Drug/Non Drug Allergy do cumented on EMR Reaction Allergy Type Onset Date Status Penicillin (For Allergies Use Only) Hives Drug Allerg y Active ENCOUNTERS from 1960 to 2021-01-12 Encounter Location Date Provider Diagnosis [address] [phone] [place] [address] Dec, Marilu Maldonado IMMUNIZATIONS No Information SOCIAL HISTORY Tobacco Use: Social History Observation Description Date Details (start date - stop date) Never Smoker Sex Assigned At : Social History Observation Description Sex Assigned At Unknown Education: Question Answer Notes Level of Education: College Audit Question Answer Notes Total Score: 4 Interpretation: Alcohol Education Language: Question Answer Notes Languages spoken: Tajik bruneian, cook islander Confucianist: Question Answer Notes Confucianist 33 None Domestic Violence: Question Answer Notes [...] Information RESULTS No Results REASON FOR VISIT Recent CT scan MEDICAL (GENERAL) HISTORY Type Description Date Medical History TIA Medical History Generalized anxiety disorder Medical History Hyperlipidemia Medical History Prediabetes Medical History BPH Medical History Benign Essential Tremor Medical History ASCVD risk 9.3% in 11/2020, patient decli navneet statin Surgical History Appendectomy 1990 Surgical History vasectomy Hospitalization History Appendectomy 1990 Hospitalization History TIA 2015 Hospitalization History fell of [facility] a couple month ago Goals Section No [...] biopsy Dec, Next Appt Details Provider Name:Marilu Maldonado, 2021-03-01 11:45:00 AM, [address] [facility], , [place], [address], Insurance Providers Payer Name Payer Address Payer Phone Insured Name Patient Relati onship to Insured Coverage Start Date Coverage End Date [facility] [phone] [place] [phone] LASHAUN PEREZ self
--- OUTSIDE RECORDS SUMMARY | 2021-03-01 08:52 | CCD | Continuity of Care Document ---
Author Author Ramses ROWAN M.D. Organization Unknown Address [address] [place] [address] Phone [phone] Care Team Providers Care Seconds Handler Name Role Phone Marilu Maldonado MD AUT [phone] Problems Description No Information Available Social History Type Date Description Comments Sex Unknown Allergies and adverse reactions Description No Information Available Medications Description No Information Available Immunizations Description No Information Available Vital Signs Description No Information Available Results Description No Information Available Procedures Date Code Description Status 01/15/2021 95749 Office/Outpatient New Moderate M DM 45-59 Minutes Completed Medical Devices Description No Information Available Encounters Type Date Location Provider Dx Diagnosis Office Visit 01/15/2021 12:30p Main office - [place] Brittany Irving M.D. R25.8 Other abnormal involuntary [...] 9:45 am - Brittany Irving M.D. at [facility] * 02/18/2021 8:15 am - EEG at [facility] Functional Status Description No Information Available Mental Status Description No Information Available Referrals Description No Information Available
[2021-03-01] MEDS ORDERED: propofoL 200 MG/20 ML VIAL As Ordered ONE (09:35)
[2021-03-01] MEDS ORDERED: LIDOCAINE 2% 100MG/5ML SDV (FOR ANES.) As Ordered ONE (09:35)
--- NOTE | 2021-03-01 10:59 | ROOR ---
Patient Name: Ramses Funez Procedure Date: 03/01/2021 10:17 AM Date of : 1960 Age: 60 Room: [facility] Gender: Male Note Status: Finalized Procedure: Colonoscopy Indications: Screening for colorectal malignant neoplasm Providers: Erick Joseph MD Referring MD: Marilu Maldonado MD Requesting Provider: Medicines: Monitored Anesthesia Care Complications: No immediate complications. Procedure: Pre-Anesthesia Assessment: - Prior to the procedure, a History and Physical was performed, and patient medications and allergies were reviewed. The patient is competent. The risks and benefits of the procedure and the sedation options and risks were discussed with the patient. All questions were answered and informed consent was obtained. Patient identification and proposed procedure were verified by the physician, the nurse and the anesthesiologist in the procedure room. Mental Status Examination: alert and oriented. Airway Examination: normal oropharyngeal airway and neck mobility. Respiratory Examination: clear to auscultation. CV Examination: normal. Prophylactic Antibiotics: The patient does not require prophylactic antibiotics. Prior Anticoagulants: The patient has taken no previous anticoagulant or antiplatelet agents. ASA Grade Assessment: II - A patient with mild systemic disease. After reviewing the risks and benefits, the patient was deemed in satisfactory condition to undergo the procedure. The anesthesia plan was to use monitored anesthesia care (MAC). Immediately prior to administration of medications, the patient was re-assessed for adequacy to receive sedatives. The heart rate, respiratory rate, oxygen saturations, blood pressure, adequacy of pulmonary ventilation, and response to care were monitored throughout the procedure. The physical status of the patient was re-assessed after the procedure. The Colonoscope was introduced through the anus and advanced to the terminal ileum, with identification of the appendiceal orifice and IC valve. The colonoscopy was performed without difficulty. The patient tolerated the procedure well. The quality of the bowel preparation was good. The terminal ileum, ileocecal valve, appendiceal orifice, and rectum were photographed. Scope insertion time was 2 minutes. Scope withdrawal time was 8 minutes. The total duration of the procedure was 12 minutes. Findings: The perianal and digital rectal examinations were normal. The terminal ileum appeared normal. A few small-mouthed diverticula were found in the sigmoid colon and descending colon. There was no evidence of diverticular bleeding. Non-bleeding external and internal hemorrhoids were found during retroflexion. The hemorrhoids were medium-sized. No other significant abnormalities were identified in a careful examination of the remainder of the colon. Impression: - The examined portion of the ileum was normal. - Mild diverticulosis in the sigmoid colon and in the descending colon. There was no evidence of diverticular bleeding. - Non-bleeding external and internal hemorrhoids. - No specimens collected. Recommendation: - Patient has a contact number available for emergencies. The signs and symptoms of potential delayed complications were discussed with the patient. Return to normal activities tomorrow. Written discharge instructions were provided to the patient. - High fiber diet. - Continue present medications. - Repeat colonoscopy in 10 years for screening purposes. - Telephone GI clinic if symptomatic. - Return to primary care physician. Procedure Code(s): --- Professional --- 05838, Colonoscopy, flexible; diagnostic, including collection of specimen(s) by brushing or washing, when performed (separate procedure) Diagnosis Code(s): --- Professional --- Z12.11, Encounter for screening for malignant neoplasm of colon K64.8, Other hemorrhoids K57.30, Diverticulosis of large intestine without perforation or abscess without bleeding CPT copyright 2019 [employer]. All rights reserved. The codes documented in this report are preliminary and upon remote inpatient coder review may be revised to meet current compliance requirements. Erick Joseph MD Erick Joseph MD 03/01/2021 10:59:39 AM Electronically signed by Erick Joseph MD Number of Addenda: 0 Note Initiated On: 03/01/2021 10:17 AM Estimated Blood Loss: Estimated blood loss was minimal.
[2021-03-01 11:17] VITALS: BP 109/68
== END 2021-03-01 14:47 | disposition home or self-care (01) ==
LOC: M OPP 08:45
PROVIDERS: ATTEND Internal Medicine Gastroenterology
DX: K64.8 Other hemorrhoids (principal); K57.30 Diverticulosis of large intestine without perforation or abscess without bleeding; Z12.11 Encounter for screening for malignant neoplasm of colon; Z86.73 Personal history of transient ischemic attack (TIA), and cerebral infarction without residual deficits; Z88.0 Allergy status to penicillin

== ENCOUNTER → 2021-03-16 | Outpatient (REF) | payer BC ==
[~2021-03-16] MED LIST changes: -NS 1,000 ML IV ONE
== END ==
LOC: M SMT PRO 11:55
PROVIDERS: ATTEND Urology
DX: R97.20 Elevated prostate specific antigen [PSA] (principal)

== ENCOUNTER → 2021-08-19 | Outpatient (CLI) | payer BC | LOC: M PLALAB 12:29 | PROVIDERS: ATTEND Urology | DX: C61 Malignant neoplasm of prostate (principal) ==

== ENCOUNTER → 2021-11-18 | Outpatient (CLI) | payer BC | LOC: M PLALAB 14:42 | PROVIDERS: ATTEND Urology | DX: C61 Malignant neoplasm of prostate (principal) ==

== ENCOUNTER → 2021-12-14 | Outpatient (REF) | payer BC | LOC: M SMT 12:55 | PROVIDERS: ATTEND Urology | DX: C61 Malignant neoplasm of prostate (principal) ==

== ENCOUNTER → 2022-02-22 | Outpatient (CLI) | payer BC ==
[2022-02-22 14:16] LABS: BASO % 0.7 % (0.0-1.0); EOS # 0.1 10^3/uL (0.0-0.5); EOS % 1.2 % (0.0-3.0); LYMPH # 2.3 10^3/uL (1.5-5.0); LYMPH % 39.7 % (24.0-44.0); MEAN CORPUSCULAR HEMOGLOBIN 27.8 pg (27.0-33.0); MEAN CORPUSCULAR HGB CONC 31.1 g/dl (32.0-36.5); MEAN CORPUSCULAR VOLUME 89.5 fl (80.0-96.0); MONO # 0.5 10^3/uL (0.0-0.8); MONO % 8.9 % (2.0-8.0); NEUTROPHILS # 2.8 10^3/uL (1.5-8.5); NEUTROPHILS % 49.3 % (36.0-66.0); PLATELET COUNT, AUTOMATED 247 10^3/uL (150-450); RED BLOOD COUNT 5.03 10^6/uL (4.30-6.10); WHITE BLOOD COUNT 5.8 10^3/uL (4.0-10.0)
[2022-02-22 14:52] LABS: ALBUMIN 3.7 GM/DL (3.2-5.2); ALT/SGPT 31 U/L (12-78); BILIRUBIN,TOTAL 0.8 MG/DL (0.2-1.0); BLOOD UREA NITROGEN 14 MG/DL (7-18); CALCIUM LEVEL 9.6 MG/DL (8.8-10.2); CARBON DIOXIDE LEVEL 29 MEQ/L (21-32); CHLORIDE LEVEL 106 MEQ/L (98-107); CREATININE FOR GFR 1.09 MG/DL (0.70-1.30); GLOMERULAR FILTRATION RATE > 60.0 (>49); GLUCOSE, FASTING 100 MG/DL (70-100); POTASSIUM SERUM 4.9 MEQ/L (3.5-5.1); PROSTATIC SPECIFIC AG MONITOR 7.18 NG/ML (< 4.00); SODIUM LEVEL 137 MEQ/L (136-145); TOTAL PROTEIN 7.1 GM/DL (6.4-8.2)
== END ==
LOC: M PLALAB 11:13
PROVIDERS: ATTEND Physician Assistant
DX: C61 Malignant neoplasm of prostate (principal); G25.0 Essential tremor

== ENCOUNTER → 2022-02-22 | Outpatient (CLI) | payer BC | LOC: M PLALAB 11:09 | PROVIDERS: ATTEND Urology | DX: C61 Malignant neoplasm of prostate (principal); G25.0 Essential tremor ==

== ENCOUNTER → 2022-03-17 | Outpatient (CLI) | payer BC ==
[~2022-03-17] MED LIST changes: +PROHANCE 279.3MG/ML 15ML VIAL ONE; +PROHANCE 279.3MG/ML 5ML VIAL ONE
== END ==
LOC: M PLAIMG 13:34
PROVIDERS: ATTEND Physician Assistant
DX: R22.30 Localized swelling, mass and lump, unspecified upper limb (principal); R22.1 Localized swelling, mass and lump, neck; M25.511 Pain in right shoulder
CPT/HCPCS: 70543; A9576

== ENCOUNTER → 2022-06-08 | Outpatient (CLI) | payer BC ==
[~2022-06-08] MED LIST changes: -PAXI30TA11 PO; +PAXI30TA12 PO; -PROHANCE 279.3MG/ML 15ML VIAL ONE; -PROHANCE 279.3MG/ML 5ML VIAL ONE
== END ==
LOC: M PLALAB 13:39
PROVIDERS: ATTEND Physician Assistant
DX: C61 Malignant neoplasm of prostate (principal)

== ENCOUNTER → 2022-08-23 | Outpatient (CLI) | payer BC | LOC: M PLALAB 09:59 | PROVIDERS: ATTEND Physician Assistant | DX: C61 Malignant neoplasm of prostate (principal) ==

== ENCOUNTER → 2022-12-08 | Outpatient (CLI) | payer BC | LOC: M PLALAB 09:06 | PROVIDERS: ATTEND Urology | DX: C61 Malignant neoplasm of prostate (principal) ==

== ENCOUNTER → 2023-04-12 | Outpatient (CLI) | payer BC | LOC: M PLALAB 11:49 | PROVIDERS: ATTEND Urology | DX: C61 Malignant neoplasm of prostate (principal) ==

== ENCOUNTER → 2023-06-22 | Outpatient (CLI) | payer BC | LOC: M PLALAB 09:58 | PROVIDERS: ATTEND Urology | DX: C61 Malignant neoplasm of prostate (principal) ==

== ENCOUNTER → 2023-07-13 | Outpatient (CLI) | payer BC ==
[2023-07-13 18:59] LABS: APPEARANCE, URINE CLEAR (CLEAR); BACTERIA, URINE AUTO NEGATIVE (NEGATIVE); BILIRUBIN, URINE AUTO NEGATIVE (NEGATIVE); BLOOD, URINE BLOOD NEGATIVE (NEGATIVE); COLOR, URINE YELLOW (YELLOW); GLUCOSE, URINE (UA) AUTO NEGATIVE (NEGATIVE); KETONE, URINE AUTO TRACE mg/dL (NEGATIVE); LEUKOCYTE ESTERASE, URINE AUTO NEGATIVE (NEGATIVE); NITRITE, URINE AUTO NEGATIVE (NEGATIVE); PROTEIN, URINE AUTO NEGATIVE (NEGATIVE); RBC, URINE AUTO 0 /HPF (0-3); SPECIFIC GRAVITY URINE AUTO 1.013 (1.002-1.035); SQUAMOUS EPITHELIAL CELL UR AU 0 /HPF (0-6); WBC, URINE AUTO 0 /HPF (0-3)
[2023-07-13 19:03] LABS: BASO % 0.3 % (0.0-1.0); EOS % 0.5 % (0.0-3.0); HEMATOCRIT 42.4 % (42.0-52.0); HEMOGLOBIN 14.2 g/dl (13.5-17.5); LYMPH % 32.6 % (24.0-44.0); MEAN CORPUSCULAR HEMOGLOBIN 28.5 pg (27.0-33.0); MEAN CORPUSCULAR HGB CONC 33.5 g/dl (32.0-36.5); MEAN CORPUSCULAR VOLUME 85.1 fl (80.0-96.0); MONO # 0.5 10^3/uL (0.0-0.8); NEUTROPHILS # 3.6 10^3/uL (1.5-8.5); NEUTROPHILS % 58.4 % (36.0-66.0); PLATELET COUNT, AUTOMATED 308 10^3/uL (150-450); RED BLOOD COUNT 4.98 10^6/uL (4.30-6.10); WHITE BLOOD COUNT 6.1 10^3/uL (4.0-10.0)
[2023-07-13 19:26] LABS: ERYTHROCYTE SEDIMENTATION RATE 9 mm/hr (0-20)
[2023-07-13 19:30] LABS: PSA SCREENING 11.96 NG/ML (< 4.00)
[2023-07-13 19:31] LABS: LIPASE 51 U/L (12-53)
[2023-07-13 19:33] LABS: C REACTIVE PROTEIN QUANTITATIV < 0.40 MG/DL (<1.0)
[2023-07-13 19:34] LABS: ALBUMIN 3.9 G/DL (3.2-5.2); ALKALINE PHOSPHATASE 42 U/L (46-116); ALT/SGPT 29 U/L (7.0-40); AST/SGOT 18 U/L (<34); BILIRUBIN,TOTAL 1.1 MG/DL (0.3-1.2); BLOOD UREA NITROGEN 19 MG/DL (9-23); CALCIUM LEVEL 9.1 MG/DL (8.3-10.6); CARBON DIOXIDE LEVEL 30 MMOL/L (20-31); CHLORIDE LEVEL 100 MMOL/L (98-107); CHOLESTEROL LEVEL 169 MG/DL (<200); CHOLESTEROL RISK RATIO 3.99 (<5); FREE T4 1.37 NG/DL (0.89-1.76); GLOMERULAR FILTRATION RATE > 60.0 (>49); GLUCOSE, FASTING 95 MG/DL (74-106); HDL CHOLESTEROL 42.3 MG/DL (>40); LDL CHOLESTEROL 112.1 MG/DL (<100); NON-HDL-C 126.7 MG/DL; POTASSIUM SERUM 4.7 MMOL/L (3.5-5.1); SODIUM LEVEL 135 MMOL/L (136-145); THYROID STIMULATING HORMONE 1.287 uIU/ML (0.55-4.78); TOTAL PROTEIN 6.6 G/DL (5.7-8.2); TRIGLYCERIDES LEVEL 73 MG/DL (<150)
== END ==
LOC: M PLAIMG 16:50
PROVIDERS: ATTEND Physician Assistant
DX: R63.4 Abnormal weight loss (principal); R10.9 Unspecified abdominal pain; Z13.220 Encounter for screening for lipoid disorders; K59.00 Constipation, unspecified; R97.20 Elevated prostate specific antigen [PSA]
CPT/HCPCS: 36415; 74018; 80053; 80061; 81001; 83036; 83690; 84439; 84443; 85025; 85652; 86140; 87086; G0103

== ENCOUNTER → 2023-08-03 | Outpatient (CLI) | payer BC | LOC: M PLALAB 10:17 | PROVIDERS: ATTEND Urology | DX: C61 Malignant neoplasm of prostate (principal) ==

== ENCOUNTER → 2023-10-05 | Outpatient (CLI) | payer BC ==
[2023-10-05 15:09] LABS: BASO % 0.6 % (0.0-1.0); EOS # 0.1 10^3/uL (0.0-0.5); EOS % 1.5 % (0.0-3.0); HEMATOCRIT 40.6 % (42.0-52.0); HEMOGLOBIN 13.2 g/dl (13.5-17.5); LYMPH # 1.6 10^3/uL (1.5-5.0); LYMPH % 28.9 % (24.0-44.0); MEAN CORPUSCULAR HEMOGLOBIN 29.7 pg (27.0-33.0); MEAN CORPUSCULAR HGB CONC 32.5 g/dl (32.0-36.5); MEAN CORPUSCULAR VOLUME 91.4 fl (80.0-96.0); MONO # 0.5 10^3/uL (0.0-0.8); MONO % 8.9 % (2.0-8.0); NEUTROPHILS # 3.2 10^3/uL (1.5-8.5); NEUTROPHILS % 59.9 % (36.0-66.0); PLATELET COUNT, AUTOMATED 209 10^3/uL (150-450); RED BLOOD COUNT 4.44 10^6/uL (4.30-6.10); WHITE BLOOD COUNT 5.4 10^3/uL (4.0-10.0)
[2023-10-05 15:18] LABS: ERYTHROCYTE SEDIMENTATION RATE 5 mm/hr (0-20)
[2023-10-05 15:40] LABS: ALBUMIN 3.8 G/DL (3.2-5.2); ALKALINE PHOSPHATASE 49 U/L (46-116); ALT/SGPT 24 U/L (7.0-40); AST/SGOT 10 U/L (<34); BLOOD UREA NITROGEN 17 MG/DL (9-23); CALCIUM LEVEL 9.3 MG/DL (8.3-10.6); CARBON DIOXIDE LEVEL 31 MMOL/L (20-31); CHLORIDE LEVEL 104 MMOL/L (98-107); CREATININE FOR GFR 0.98 MG/DL (0.70-1.30); GLOMERULAR FILTRATION RATE > 60.0 (>49); GLUCOSE, FASTING 116 MG/DL (74-106); POTASSIUM SERUM 4.5 MMOL/L (3.5-5.1); RHEUMATOID FACTOR QUANT < 3.5 IU/ML (<14); SODIUM LEVEL 137 MMOL/L (136-145); TOTAL PROTEIN 6.5 G/DL (5.7-8.2)
[2023-10-05 15:41] LABS: HEMOGLOBIN A1c 5.5 % (4.0-6.0)
[2023-10-05 15:42] LABS: FOLATE 10.4 NG/ML (>5.4); THYROID STIMULATING HORMONE 1.278 uIU/ML (0.55-4.78)
[2023-10-05 15:43] LABS: VITAMIN B12 LEVEL 282 PG/ML (211-911)
[2023-10-06 09:16] LABS: T P ELECTROPHORESIS SO 6.5 g/dL (6.1-8.1)
[2023-10-06 15:23] LABS: ANA SCREEN, IFA NEGATIVE (NEGATIVE)
[2023-10-09 07:38] LABS: ALBUMIN SPEP 4.1 g/dL (3.8-4.8); ALPHA-1-GLOBULINS SO 0.2 g/dL (0.2-0.3); ALPHA-2-GLOBULINS SO 0.5 g/dL (0.5-0.9); BETA 2 GLOBULIN 0.3 g/dL (0.2-0.5); BETA-GLOBULIN SO 0.4 g/dL (0.4-0.6); SPEP ABN PROTEIN BAND 1 0.5 g/dL (NONE DETECTED)
== END ==
LOC: M PLALAB 09:59
PROVIDERS: ATTEND Psychiatry & Neurology Neurology
DX: G62.9 Polyneuropathy, unspecified (principal)

== ENCOUNTER → 2025-02-05 | Outpatient (REF) | payer BC ==
[~2025-02-05] MED LIST changes: -FLOM0.4C39 PO; +TAMS-18 PO
[2025-02-05 15:58] LABS: APPEARANCE, URINE CLEAR (CLEAR); BACTERIA, URINE AUTO NEGATIVE (NEGATIVE); BILIRUBIN, URINE AUTO NEGATIVE (NEGATIVE); BLOOD, URINE BLOOD NEGATIVE (NEGATIVE); GLUCOSE, URINE (UA) AUTO NEGATIVE (NEGATIVE); KETONE, URINE AUTO NEGATIVE (NEGATIVE); LEUKOCYTE ESTERASE, URINE AUTO NEGATIVE (NEGATIVE); MUCUS, URINE SMALL (NEGATIVE); NITRITE, URINE AUTO NEGATIVE (NEGATIVE); PROTEIN, URINE AUTO NEGATIVE (NEGATIVE); RBC, URINE AUTO 1 /HPF (0-3); SPECIFIC GRAVITY URINE AUTO 1.014 (1.002-1.035); SQUAMOUS EPITHELIAL CELL UR AU 0 /HPF (0-6); UROBILINOGEN, URINE AUTO 0.2 mg/dL (0.0-2.0); WBC, URINE AUTO 1 /HPF (0-3)
== END ==
LOC: M SMT 15:04
PROVIDERS: ATTEND Urology
DX: N39.0 Urinary tract infection, site not specified (principal)